=== PATIENT | female | born 1945 | race African-American/Black ===

== ENCOUNTER 2016-09-09 19:53 | Emergency (ER) | payer BC, MEDICARE ==
--- NOTE | 2016-09-09 20:27 | RAD ---
THREE VIEWS OF THE RIGHT WRIST 09/09/16 COMPARISON: None. HISTORY: Trauma, pain. FINDINGS: There is a comminuted obliquely oriented distal right radial fracture with extension into the radioc arpal joint and the region of the distal radioulnar joint. There is an associated transverse fractur e at the base of the ulnar styloid. There is no widening of the scapholunate interval. No discrete s caphoid fracture seen. There is prominent degenerative change at the first carpometacarpal joint. IMPRESSION: Comminuted obliquely oriented intra-articular fracture of the distal right radius. Associated transv erse fracture seen at the base of the ulnar styloid. POS: [facility]
== END 2016-09-09 21:00 | disposition home or self-care (01) ==
LOC: NAV ERS 19:53
DX: S52.501A Unspecified fracture of the lower end of right radius, initial encounter for closed fracture (principal); S52.611A Displaced fracture of right ulna styloid process, initial encounter for closed fracture; E78.00 Pure hypercholesterolemia, unspecified; I10 Essential (primary) hypertension; M19.90 Unspecified osteoarthritis, unspecified site; Z79.899 Other long term (current) drug therapy; W01.0XXA Fall on same level from slipping, tripping and stumbling without subsequent striking against object, initial encounter
CPT/HCPCS: 29125

== ENCOUNTER 2017-02-03 06:43 | Outpatient (CLI) | payer BC, MEDICARE ==
[2017-02-03 07:32] LABS: #Basophils 0.1 thou/uL (0.0-0.2); #Eosinphils 0.2 thou/uL (0.0-0.7); #Lymphocytes 1.8 thou/uL (1.20-3.40); #Monocytes 0.4 thou/uL (0.11-0.59); %Eosinophils 3.9 % (0.0-10.0); %Lymphocytes 33.1 % (21.0-51.0); %Monocytes 6.8 % (0.0-10.0); %Neutrophils 55.2 % (42.0-75.0); Hemoglobin 12.1 g/dL (12.0-16.0); Mean Corpuscular HGB CONC 32.4 g/dL (32.0-36.0); Mean Corpuscular Hemoglobin 28.8 pg (27.0-31.0); Mean Corpuscular Volume 88.7 fl (81.0-99.0); Mean Platelet Volume 7.7 fL (7.4-10.4); Platelet Count 200 thou/uL (130-400); RBC Distribution Width 14.5 % (11.5-14.5); Red Blood Cell (RBC) Count 4.19 mill/uL (4.20-5.40); White Blood Cell (WBC) Count 5.5 thou/uL (4.8-10.8)
[2017-02-03 07:53] LABS: ALT (SGPT) 17 U/L (8-55); AST (SGOT) 28 U/L (5-34); Alkaline Phosphatase 49 U/L (40-150); Anion Gap 13 mmol/L (10-20); BUN (Urea Nitrogen) 12 mg/dL (9.8-20.1); Bilirubin, Total 0.2 mg/dL (0.2-1.2); Calc. Creatinine Clearance 0 mL/min (70-130); Calcium 9.1 mg/dL (7.8-10.44); Carbon Dioxide 21 mmol/L (23-31); Cardiac Risk 2.7 (Less than 4.5); Chloride 109 mmol/L (98-107); Cholesterol 236 mg/dl (< 200 Desired); Estimated GFR-MDRD Greater than 90; Globulin 3.6 g/dL (2.4-3.5); Glucose 93 mg/dL (83-110); HDL Cholesterol 88 mg/dL (>60 Neg Risk); LDL Cholesterol, Calculated 136 mg/dL; Potassium 3.8 mmol/L (3.5-5.1); Protein, Total 7.6 g/dL (6.0-8.3); Sodium 139 mmol/L (136-145); Triglycerides 62 mg/dL (Less than 150)
[2017-02-03 08:16] LABS: Free T4 (Free Thyroxine) 0.78 ng/dL (0.70-1.48)
== END 2017-02-03 06:44 | disposition home or self-care (01) ==
LOC: NAV LAB 06:43
PROVIDERS: ATTEND Family Medicine
DX: E78.5 Hyperlipidemia, unspecified (principal); I10 Essential (primary) hypertension
CPT/HCPCS: 36415; 80053; 80061; 84439; 84443; 85025

== ENCOUNTER 2018-11-23 12:50 | Emergency (ER) | payer BC, MEDICARE ==
[2018-11-23] MEDS ORDERED: Ibuprofen 200 MG TAB ONE (13:06)
[2018-11-23] MEDS ORDERED: traMADol HCl 50 MG TAB ONE (13:06)
[2018-11-23] MEDS ORDERED: diphenhydrAMINE 25 MG CAP ONE (13:06)
== END 2018-11-23 14:20 | disposition home or self-care (01) ==
LOC: NAV ERS 12:50
DX: T63.461A Toxic effect of venom of wasps, accidental (unintentional), initial encounter (principal); E78.5 Hyperlipidemia, unspecified; M19.90 Unspecified osteoarthritis, unspecified site; I10 Essential (primary) hypertension; Z79.899 Other long term (current) drug therapy
CPT/HCPCS: 99282; Q0163

== ENCOUNTER 2025-04-20 10:58 | Emergency (ER) | payer BC, OTHER ==
[2025-04-20] MEDS ORDERED: Benzonatate 100 MG CAP ONE (11:22)
== END 2025-04-20 12:00 | disposition home or self-care (01) ==
LOC: NAV ERS 10:58
DX: R05.9 Cough, unspecified (principal); I10 Essential (primary) hypertension
CPT/HCPCS: 71046